=== PATIENT | male | born 1980 | race Caucasian/White ===

== ENCOUNTER 2021-01-28 06:34 | Emergency (ER) | payer OTHER ==
[~2021-01-28] VITALS: Ht 188 cm; Wt 83.9 kg
[2021-01-28] MEDS ORDERED: ERYTHROMYCIN E3.5 G3 OPHTHALMIC (07:56)
[2021-01-28] MEDS ORDERED: CIPROFLOXIN HC2.5 M1 OPHTHALMIC (07:56)
[2021-01-28 08:24] VITALS: BP 121/76
== END 2021-01-28 08:30 | disposition home or self-care (01) ==
LOC: ER 06:34
DX: H16.001 Unspecified corneal ulcer, right eye (principal)